=== PATIENT | male | born 1950 | race Caucasian/White ===

== ENCOUNTER 2023-12-05 20:13 | Emergency (ER) | payer OTHER, MEDICAID ==
[~2023-12-05] VITALS: Ht 167.6 cm; Wt 87.0 kg
[2023-12-05 20:28] VITALS: O2SAT 94
[2023-12-05 21:19] LABS: BASOPHILS % 0.6 % (0.0-2.0); DIFFERENTIAL COMMENT 0; EOSINOPHILS % 0.1 % (0.0-5.0); HEMATOCRIT. 42.9 % (42.0-52.0); HEMOGLOBIN. 14.4 g/dL (14.0-18.0); LYMPHOCYTES % 8.2 % (20.0-50.0); MEAN CORPUSCULAR HEMOGLOBIN 29.4 pg (28.0-32.0); MEAN CORPUSCULAR HGB CONC 33.5 g/dL (31.0-37.0); MEAN CORPUSCULAR VOLUME 87.8 fL (80.0-94.0); MEAN PLATELET VOLUME 8.5 fl (7.4-10.4); MONOCYTES % 8.1 % (2.0-8.0); PLATELET 172 x1000/uL (130-400); RED BLOOD CELL COUNT 4.89 mill/uL (4.7-6.1); RED CELL DISTRIBUTION WIDTH 12.9 % (11.6-14.6); WHITE BLOOD COUNT 17.3 x1000/uL (4.5-11.0)
[2023-12-05 21:23] LABS: CHLORIDE 96 mEq/L (98-107); POTASSIUM 4.6 mEq/L (3.5-5.1); SODIUM 129 mEq/L (136-145)
[2023-12-05 21:24] LABS: CALCIUM 8.7 mg/dL (8.7-10.4); CARBON DIOXIDE 25 mEq/L (21-32)
[2023-12-05 21:29] LABS: CREATININE 1.4 mg/dL (0.6-1.3); UREA NITROGEN BLOOD 25 mg/dL (9-23)
[2023-12-05 21:30] LABS: TROPONIN I HIGH SENSITIVITY 19 ng/L (3.0-53)
[2023-12-05 21:31] LABS: ALANINE AMINOTRANSFERASE 20 IU/L (10-49); ALBUMIN 4.2 g/dL (3.2-4.8); ASPARTATE AMINOTRANSFERASE 29 IU/L (<34); BILIRUBIN DIRECT 0.4 mg/dL (<=3.0); PROTEIN TOTAL 7.2 g/dL (6.0-8.3)
[2023-12-05 21:41] LABS: GLUCOSE 434 mg/dL (70-105)
[2023-12-05 21:50] LABS: BETA HYDROXYBUTYRATE 0.2 mMol/L (0.0-0.3)
[2023-12-05] MEDS ORDERED: IOHEXOL-350 100 ML BOTTLE ONE (23:19)
[2023-12-05] MEDS: LACTATED RINGERS 1,000 ML IV SCH (23:36)
[2023-12-05] MEDS: ASPIRIN 81MG TABLET PO ONE (23:36)
[2023-12-05] MEDS: INSULIN REGULAR (HUMULIN R) 1000UNITS/10ML VIAL IV ONE (23:44)
[2023-12-06 00:21] LABS: CLARITY URINE CLEAR (CLEAR); COLOR URINE YELLOW (YELLOW); GLUCOSE URINE 3+ (NEGATIVE); KETONES URINE NEGATIVE (NEGATIVE); LEUKOCYTE ESTERASE URINE NEGATIVE (NEGATIVE); NITRITE URINE NEGATIVE (NEGATIVE); OCCULT BLOOD URINE 2+ (NEGATIVE); PROTEIN URINE 2+ (NEGATIVE); SPECIFIC GRAVITY URINE 1.055 (1.005-1.030); UROBILINOGEN URINE 0.2 E.U./dL (0.2-1.0)
[2023-12-06 00:40] LABS: WBC URINE NONE SEEN /hpf (0-2)
[2023-12-06 00:41] LABS: BACTERIA URINE TRACE; SQUAMOUS EPITHELIAL CELL URINE FEW /lpf (RARE/1+)
[2023-12-06 00:44] VITALS: BP 139/67; PULSE 86; RESP 19; TEMP 98.7
[2023-12-06 00:57] LABS: TROPONIN I HIGH SENSITIVITY 18 ng/L (3.0-53)
[2023-12-06] MEDS ORDERED: PIPERACILLIN/TAZO 3.375G/50ML 50 ML IV SCH (06:00)
== END 2023-12-06 01:11 | disposition short-term general hospital (02) ==
LOC: ER 20:13 → EDBEDREQTM 23:37 → EDBEDREQ 23:37 → ER 12-06 01:11 → CANBEDREQ 12-07 22:38
DX: E11.65 Type 2 diabetes mellitus with hyperglycemia (principal); D72.829 Elevated white blood cell count, unspecified; N17.9 Acute kidney failure, unspecified; I10 Essential (primary) hypertension
CPT/HCPCS: 99291; 70496; 96374; 71045; 96361; 80076; 80048; 82010; 82962 ×2; 83690; 85025; 84484 ×2; 36415; 70498; 93005; 70450; 81003; Q9967; J1815